=== PATIENT | male | born 1955 | race African-American/Black ===

== ENCOUNTER 2016-07-07 08:01 | Emergency (ER) ==
--- NOTE | 2016-07-07 09:31 | PROVIDER DOCUMENTATION ---
HPI-General Adult - General Source: patient - History of Present Illness -Gen Adult Nature of Presenting Problems: 60 [id number] PRESENTS TO ED WITH C/O PT STATES SORENESS IN FRONT OF NECK X 2 DAYS. PT DENIES SORE THROAT. PT HAS PAIN IN THE RT STERNUM CLAVICULAR JUNCTION. Location of Pain/Injury: reports: neck (FRONT OF NECK) Pain Radiation: reports: no radiation Quality of Pain: reports: aching Severity: reports: moderate Onset/Duration: reports: 2 days ago Timing: reports: still present Context/Activities at Onset: reports: light activity Modifying Factors: improves with: nothing Associated Symptoms: reports: back/neck pain (FRONT NECK PAIN) Similar Symptoms Previously?: No Recently seen or treated by another doctor?: No <Kevin Muñoz - Last Filed: 07/07/16 10:11> <Wale Goodwin - Last Filed: 07/07/16 10:31> - General Chief Complaint: General Adult Stated Complaint: THROAT TIGHTNESS Time Seen by Provider: 07/07/16 08:54 Allergies/Adverse Reactions: Patient Allergies Allergy/AdvReac Type Severity Reaction Status Date / Time No Known Allergies Allergy Verified 07/07/16 08:18 Home Medications: Home Medication List Medication Instructions Recorded Confirmed Last Taken Type Amlodipine [Norvasc] 10 mg PO DAILY 06/05/13 06/05/13 02/16/16 History Carvedilol [Coreg] 6.25 mg PO BID 06/05/13 02/17/16 02/16/16 History Carvedilol [Coreg] 6.25 mg PO BID #60 tablet 06/05/13 02/16/16 Rx Furosemide [Lasix] 40 mg PO DAILY #30 tablet 02/17/16 Unknown Rx Hydralazine [Apresoline] 25 mg PO TID 02/17/16 02/17/16 02/16/16 History Lisinopril 10 mg PO DAILY 02/17/16 02/17/16 02/16/16 History Minoxidil 2.5 mg PO TID 02/17/16 02/17/16 02/16/16 History Spironolactone 25 mg PO DAILY 02/17/16 02/17/16 02/16/16 History Naproxen [EC-Naprosyn] 500 mg PO Q12H PRN PRN #30 07/07/16 Unknown Rx tablet. Review of Systems - Adult - REVIEW OF SYSTEMS - ADULT Constitutional: denies: chills, fever Eyes: reports: no symptoms reported Ears, Nose, Mouth & Throat: reports: no symptoms reported Cardiovascular: denies: chest pain, palpitations, syncope Respiratory: denies: cough, shortness of breath, wheezing Gastrointestinal: denies: abdominal pain, diarrhea, nausea, vomiting Genitourinary: reports: no symptoms reported Musculoskeletal: reports: neck pain (FRONT OF NECK). denies: back pain Integumentary: reports: no symptoms reported Neurological: denies: dizziness/vertigo, headache/migraines, syncope Psychiatric: reports: no symptoms reported Endocrine: reports: no symptoms reported Hematologic/Lymphatic: reports: no symptoms reported Allergic/Immunologic: reports: no symptoms reported All Other Systems: Reviewed and Negative <Kevin Muñoz - Last Filed: 07/07/16 10:11> Past History - Adult - PAST MEDICAL HISTORY-ADULT Review of Records: reports: Nursing Assessment Review, Medications Reviewed Cardiovascular: reports: CHF, HTN - PRIOR SURGERIES/PROCEDURES Surgical/Procedure History: reports: reviewed, not pertinent - PRIOR HOSPITALIZATIONS Prior Hospitalizations: reports: for similar symptoms - IMMUNIZATION STATUS Childhood Immunizations: See Nurse Assessment Flu Vaccine: See Nurse Assessment - FAMILY HISTORY Family History: reviewed, not pertinent - SOCIAL HISTORY Smoking: cigarettes, greater than 1 pack/day Provider spent 3-5 mins advising pt. on dangers of tobacco.: Discussed manners to quit use, and f/u contacts for add'l counseling. Substance Use: alcohol Alcohol Use Frequency: occasionally Number of drinks per typical drinking period:: 3-4 drinks Living Situation: family <Kevin Muñoz - Last Filed: 07/07/16 10:11> Physical Exam-General - CONSTITUTIONAL General Appearance: alert, mild distress - EYES Eyes: PERRL/EOMI, pink conjunctivae - HEAD, EARS, NOSE, MOUTH & THROAT HENMT: normocephalic/atraumatic, moist mucous membranes - NECK Neck: full range of motion, supple, tender midline (FRONT OF NECK) - RESPIRATORY Respiratory: chest non-tender, lungs clear, normal breath sounds - CARDIOVASCULAR Cardiovascular: normal peripheral pulses, regular rate, rhythm - GASTROINTESTINAL (ABDOMEN) Abdominal Exam: normal bowel sounds, non tender, soft - LYMPHATIC Lymphatic: no adenopathy - MUSCULOSKELETAL Back Exam: normal inspection, no CVA tenderness, no vertebral tenderness Extremity: normal range of motion, non-tender - SKIN Integumentary: normal color, normal turgor, warm/dry - NEUROLOGIC Neurologic: grossly normal - PSYCHIATRIC Psych/Mental Status: oriented x 3 <Kevin Muñoz - Last Filed: 07/07/16 10:11> Progress - XRAY 1 XRAY: Right XRAY Study: other (STERNO-CLAVICULAR JOINT) XRAY Interpretation: NAD <Kevin Muñoz - Last Filed: 07/07/16 10:11> Departure <Kevin Muñoz - Last Filed: 07/07/16 10:11> - Departure Time of Disposition Order: 10:22 Certified Medical Emergency: Emergent <Wale Goodwin - Last Filed: 07/07/16 10:31> - Departure DIAGNOSIS: Sternoclavicular joint pain Qualifiers: Laterality: right Qualified Code(s): M25.511 - Pain in right shoulder Disposition: HOME 01 Condition: Good Additional Instructions: ED Follow Up Instructions: You have been treated by a care provider in the Emergency Department. These instructions are being provided to you so you can have an understanding of how to care for yourself upon discharge. Upon discharge from the Emergency Department, you are responsible for making arrangements for follow-up care by a physician of your choice. Take all prescribed medications as directed. Return to the Emergency Department immediately for any new or worsening symptoms. You may call the Physician Referral phone number at [phone] to obtain a list of Physicians who are taking new patients. Prescriptions: Naproxen [EC-Naprosyn] 500 mg PO Q12H PRN PRN #30 tablet.dr ENRIQUEZ Reason: Pain Instructions: Costochondritis Attestation - Scribe Verification/Attestation Scribe:: Kevin Muñoz Acting as Scribe for:: Wale Goodwin Scribe documention review:: This chart was documented by a scribe and accurately reflects the service the provider performed and the decisions made by the provider. <Kevin Muñoz - Last Filed: 07/07/16 10:11> Physician Attestation - Physician Attestation I, the provider, attest to the following statement:: Wale Goodwin Physician documentation Attestation:: This documentation recorded by the scribe accurately reflects the service I personally performed and the decisions made by me. <Wale Goodwin - Last Filed: 07/07/16 10:31>
--- NOTE | 2016-07-07 10:29 | Diag Imaging Result Document ---
PROCEDURE NAME: STERNO-CLAVICULAR JOINT-RIGHT - 07/07/2016 BILATERAL STERNOCLAVICULAR JOINTS, 4 VIEWS: COMPARISON: None. FINDINGS: The sternoclavicular joints are intact and normally preserved. No fracture or dislocation. No bony erosions. 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 IMPRESSION: No acute disease.
[2016-07-07 10:52] VITALS: BP 144/75
== END 2016-07-07 10:52 | disposition home or self-care (01) ==
LOC: P.ED 08:01
DX: M25.511 Pain in right shoulder (principal); M54.2 Cervicalgia; F17.210 Nicotine dependence, cigarettes, uncomplicated; Z71.6 Tobacco abuse counseling; I50.9 Heart failure, unspecified; I10 Essential (primary) hypertension; Z79.899 Other long term (current) drug therapy
CPT/HCPCS: 71130